=== PATIENT | male | born 1990 | race Two or more races ===

== ENCOUNTER 2021-09-18 15:50 | Emergency (ER) | payer BC, OTHER ==
[~2021-09-18] VITALS: Ht 170.2 cm; Wt 75.3 kg
[2021-09-18] MEDS ORDERED: LORazepam 2MG/ML-1ML VIAL IM ONE (18:00)
[2021-09-18] MEDS ORDERED: diphenhdrAMINE HCL 50 MG/1 ML VL IM ONE (18:00)
[2021-09-18] MEDS ORDERED: HALOPERIDOL LACTATE 5 MG/ML INJ VIAL IM ONE (18:00)
[2021-09-18 18:29] LABS: Alcohol, Urine < 3.0 mg/dL (0-10); Amphetamine Screen, Urine NEGATIVE (NEGATIVE); Barbiturate Scree,Urine NEGATIVE (NEGATIVE); Benzodiazephine Screen, Urine NEGATIVE (NEGATIVE); Cannabinoid Screen, Urine POSITIVE (NEGATIVE); Cocaine Screen, Urine NEGATIVE (NEGATIVE); Opiate Scree,Urine NEGATIVE (NEGATIVE); Phencyclidine Screen, Urine NEGATIVE (NEGATIVE)
[2021-09-18 18:50] LABS: Basophils # (auto) 0 10 ^3/uL (0-0.2); Basophils % (auto) 0.4 % (0.0-2.0); Eosinophils # (auto) 0.1 10 ^3/uL (0-0.8); Eosinophils % (auto) 1.6 % (0.0-7.0); Hematocrit 37.2 % (41.0-53.0); Hemoglobin 12.8 g/dL (13.5-17.5); Lymphocytes # (auto) 1.9 10 ^3/uL (0.4-5.4); Lymphocytes % (auto) 23.2 % (10.0-50.0); Mean Corpuscular Hemoglobin 31.3 pg (28.0-32.0); Mean Corpuscular Hgb Conc. 34.5 g/dL (32.0-36.0); Mean Corpuscular Volume 90.9 fL (80.0-100.0); Monocytes # (auto) 0.5 10 ^3/uL (0-1.3); Monocytes % (auto) 6.4 % (0.0-12.0); Neutrophils # (auto) 5.5 10 ^3/uL (1.6-8.6); Neutrophils % (auto) 68.4 % (37.0-80.0); Nucleated Red Blood Cells % 0.1 %; Red Cell Distribution Width 14.7 % (11.8-14.3)
[2021-09-18 19:09] LABS: Albumin 3.7 g/dL (3.4-5.0); Calcium 8.9 mg/dL (8.5-10.1); Potassium 3.7 mmol/L (3.5-5.1)
[2021-09-18 19:13] LABS: BUN/Creatinine Ratio 13.6; Bilirubin, Total 0.3 mg/dL (0.2-1.0); Total Protein 6.5 g/dL (6.4-8.2)
[2021-09-19] MEDS ORDERED: HALOPERIDOL LACTATE 5 MG/ML INJ VIAL IM ONE ×2 (08:00→23:00)
[2021-09-19] MEDS ORDERED: diphenhdrAMINE HCL 50 MG/1 ML VL IM ONE (08:00)
[2021-09-19] MEDS ORDERED: OLANZapine 5 MG TAB PO SCH (22:00)
[2021-09-19] MEDS ORDERED: LORazepam 2MG/ML-1ML VIAL ONE (22:34)
[2021-09-19] MEDS ORDERED: HALOPERIDOL LACTATE 5 MG/ML INJ VIAL ONE (22:43)
[2021-09-19] MEDS ORDERED: LORazepam 2MG/ML-1ML VIAL IM ONE (23:00)
[2021-09-20 01:08] VITALS: BP 110/63
== END 2021-09-20 01:22 ==
LOC: EDBD 15:50 → ER 15:50
DX: F20.9 Schizophrenia, unspecified (principal); F12.10 Cannabis abuse, uncomplicated; F31.9 Bipolar disorder, unspecified
CPT/HCPCS: 36415; 80053; 80307; 80320; 84443; 85025; 87426; 96372; 99285; J1200; J1630; J2060

== ENCOUNTER 2023-01-17 12:28 | Emergency (ER) | payer BC, OTHER ==
[~2023-01-17] VITALS: Ht 172.7 cm; Wt 74.1 kg
[2023-01-17 14:10] LABS: Basophils # (auto) 0 10 ^3/uL (0-0.2); Basophils % (auto) 0.6 % (0.0-2.0); Eosinophils # (auto) 0.2 10 ^3/uL (0-0.8); Eosinophils % (auto) 2.8 % (0.0-7.0); Hematocrit 45.9 % (41.0-53.0); Hemoglobin 15.6 g/dL (13.5-17.5); Lymphocytes # (auto) 2.6 10 ^3/uL (0.4-5.4); Lymphocytes % (auto) 37.4 % (10.0-50.0); Mean Corpuscular Hemoglobin 30.5 pg (28.0-32.0); Mean Corpuscular Volume 89.8 fL (80.0-100.0); Monocytes # (auto) 0.4 10 ^3/uL (0-1.3); Monocytes % (auto) 5.4 % (0.0-12.0); Neutrophils # (auto) 3.8 10 ^3/uL (1.6-8.6); Neutrophils % (auto) 53.8 % (37.0-80.0); Nucleated Red Blood Cells % 0.1 %; Red Blood Cells 5.11 10^6/uL (4.5-5.90); Red Cell Distribution Width 13.7 % (11.8-14.3); White Blood Cell 7.1 10^3/uL (4.4-10.8)
[2023-01-17 14:28] LABS: Albumin 4.5 g/dL (3.4-5.0); Calcium 9.3 mg/dL (8.5-10.1); Potassium 3.4 mmol/L (3.5-5.1)
[2023-01-17 14:34] LABS: BUN/Creatinine Ratio 11.8 (10.0-20.0); Bilirubin, Total 0.5 mg/dL (0.2-1.0)
[2023-01-17] MEDS: OLANZapine 5 MG TAB PO SCH (22:58)
[2023-01-18 00:30] LABS: Urine Bacteria NONE SEEN /hpf (None Seen); Urine Blood Negative /uL (Negative); Urine Mucus FEW (None Seen); Urine Specific Gravity 1.034 (1.001-1.035); Urine WBC 1 /hpf (0 - 3)
[2023-01-18 00:54] LABS: Alcohol, Urine < 3.0 mg/dL (0-10); Amphetamine Screen, Urine NEGATIVE (NEGATIVE); Barbiturate Scree,Urine NEGATIVE (NEGATIVE); Benzodiazephine Screen, Urine NEGATIVE (NEGATIVE); Cannabinoid Screen, Urine POSITIVE (NEGATIVE); Cocaine Screen, Urine NEGATIVE (NEGATIVE); Opiate Scree,Urine NEGATIVE (NEGATIVE); Phencyclidine Screen, Urine NEGATIVE (NEGATIVE)
[2023-01-18] MEDS: OLANZapine 5 MG TAB PO SCH ×2 (12:19→22:50)
[2023-01-18] MEDS: SERTRALINE HCL 50 MG TAB PO SCH (12:19)
[2023-01-19] MEDS: SERTRALINE HCL 50 MG TAB PO SCH (12:19)
[2023-01-19] MEDS: OLANZapine 5 MG TAB PO SCH ×2 (12:21→21:58)
[2023-01-19] MEDS ORDERED: MELATONIN 5 MG TAB PO ONE (22:00)
[2023-01-20 08:20] VITALS: BP 122/78
[2023-01-20] MEDS: OLANZapine 5 MG TAB PO SCH (10:24)
[2023-01-20] MEDS: SERTRALINE HCL 50 MG TAB PO SCH (10:25)
[2023-01-20] MEDS ORDERED: MELATONIN 5 MG TAB PO ONE (22:00)
== END 2023-01-20 13:57 | disposition left against medical advice (07) ==
LOC: EDBD 12:28 → ER 12:28
DX: F25.9 Schizoaffective disorder, unspecified (principal); F41.9 Anxiety disorder, unspecified
CPT/HCPCS: 36415; 80053; 80307; 81001; 85025